=== PATIENT | female | born 1960 | race Caucasian/White ===

== ENCOUNTER 2018-09-29 15:13 | Emergency (ER) | payer OTHER ==
[2018-09-29 15:34] VITALS: BP 141/82
--- NOTE | 2018-09-29 16:10 | UC ---
Cardiac HPI - HPI Summary HPI Summary: See nurse's notes, Pt has been having symptoms over the past 2 weeks of racing heart, intermittent chest pressure, neck pain, occasional nausea. She has seen her PCP but has not had a cardiac work up. Today she has pain on deep inspiration. She is a non-smoker, no use of control. She states "I feel absolutely terrible". She has an appt with her PCP this Thursday but felt so bad today she wanted to be seen. - History of Current Complaint Chief Complaint: UCChestPain Stated Complaint: CHEST PAIN Time Seen by Provider: 09/29/18 15:46 Hx Obtained From: Patient Onset/Duration: Gradual Onset, Lasting Weeks - Past 2 weeks Timing: Intermittent Episodes Lasting: - Last minutes, pain on deep inspiration Initial Severity: Mild Current Severity: Mild Pain Intensity: 5 Chest Pain Location: Mid Sternal - Radiates through to back Character: Pounding - Occasional tachycardia, Dull/Aching, Heaviness Aggravating Factor(s): Deep Breaths - Works out twice a day Alleviating Factor(s): Nothing Associated Signs & Symptoms: Positive: Chest Pain - Ringing in ears the past few days, Headaches - Headache today, Nausea/Vomiting - Occasioanl nausea, no vomiting, Palpitations, Back Pain. Negative: Calf Pain/Swelling - Risk Factors Pulmonary Embolism Risk Factors: Negative Cardiac Risk Factors: Negative, Family History Atrial Fibrillation: Negative TAD Risk Factors: Negative AMI/ACS Risk Factors: Family History - Family history of cardiac disease - Allergy/Home Medications Allergies/Adverse Reactions: Allergies Allergy/AdvReac Type Severity Reaction Status Date / Time No Known Allergies Allergy Verified 09/29/18 16:58 Home Medications: Home Medications ALPRAZolam TAB* [Xanax TAB*] 0.25 mg PO Q6H PRN 09/29/18 [History Confirmed 01/12] Aspirin/Acetaminophen/Caffeine [Excedrin Extra Strength Caplet] 1 each PO ONCE PRN 09/29/18 [History Confirmed 09/29/18] Bupropion XL* [Wellbutrin XL *] 150 mg PO DAILY 09/29/18 [History Confirmed 01/12] Naproxen Sodium [Aleve] 220 mg PO ONCE PRN 09/29/18 [History Confirmed 09/29/18] PMH/Surg Hx/FS Hx/Imm Hx Previously Healthy: Yes - Surgical History Surgical History: Yes Surgery Procedure, Year, and Place: APPY. RHINOPLASTY. FIBROID EMBOLISM - Family History Known Family History: Positive: Cardiac Disease - Social History Occupation: Employed Full-time Alcohol Use: Rare Substance Use Type: None Smoking Status (MU): Never Smoked Tobacco Review of Systems All Other Systems Reviewed And Are Negative: Yes Constitutional: Positive: Negative, Other - Feels shaky today Skin: Positive: Negative Eyes: Positive: Negative ENT: Positive: Negative Respiratory: Positive: Other - Pain on deep inspiration Cardiovascular: Positive: Palpitations - Occasional palpitations even at rest Gastrointestinal: Positive: Nausea - Intermittent nausea Genitourinary: Positive: Negative Motor: Positive: Negative Neurovascular: Positive: Negative Musculoskeletal: Positive: Negative Neurological: Positive: Headache, Other - Feels shaky Psychological: Positive: Anxious Is Patient Immunocompromised?: No Physical Exam Triage Information Reviewed: Yes Appearance: Well-Appearing, No Pain Distress, Well-Nourished Vital Signs: Initial Vital Signs Temp 98.3 F 09/29/18 15:17 Pulse 90 09/29/18 15:17 Resp 18 09/29/18 15:17 BP 195/91 09/29/18 15:17 Pulse Ox 99 09/29/18 15:17 Vital Signs Reviewed: Yes Eye Exam: Normal ENT Exam: Normal Neck exam: Normal Respiratory Exam: Normal Respiratory: Positive: Other: - Pain on deep inspiration Cardiovascular Exam: Normal Abdominal Exam: Normal Bowel Sounds: Positive: Present Musculoskeletal Exam: Normal Musculoskeletal: Positive: Other: - Calves non-tender Neurological Exam: Normal Psychological Exam: Normal Skin Exam: Normal - Assessment/Plan Course Of Treatment: Comfortable here in No distress although she feels terrible. EKG read by Dr. Gregory as NSR, HR 88, no ST depression or elevation. Wells score is 0 and PERC is +[address] Gregory, we feel pt needs to go to the ER for further evaluation. Pt refuses to take ambulance and will sign out AMA however states she will go to the ER for further care. Dr Gregory - Spoke to pt about going to ED for further management of unknown cause intermittent palpitations and to r/o most life threatening cause would be to r/ o PE, EKG is non-ominous. Pt reluctant to go to ED via ambulance, discussed risks, signed AMA form and stated she's rather drive herself to ED NOT via ambulance. - Clinical Impression Provider Diagnosis: Chest pain - Physician Notifications Discussed Patient Care With: Tri Gregory Discharge - Sign-Out/Discharge Documenting (check all that apply): Patient Departure All imaging exams completed and their final reports reviewed: No Studies - Discharge Plan Condition: Fair Disposition: HOME-RECOMMEND TO ED Referrals: No Primary Care Phys,NOPCP [Primary Care Provider] - Additional Instructions: Go directly to the Emergency Room for further treatment. It is recommended you go by ambulance. - Billing Disposition and Condition Condition: FAIR Disposition: Home-Recommend to ED
== END 2018-09-29 16:30 | disposition home health service (06) ==
LOC: UCEAST 15:13
DX: R07.1 Chest pain on breathing (principal); R51 Headache; R11.0 Nausea; R00.2 Palpitations; M54.9 Dorsalgia, unspecified; M54.2 Cervicalgia
CPT/HCPCS: 99212; G0463

== ENCOUNTER → 2018-09-29 16:45 | Emergency (ER) | payer OTHER ==
--- NOTE | 2018-09-29 17:07 | ED ---
HPI Chest Pain - HPI Summary HPI Summary: A 57 y/o F sent [place] [facility] [place] presents to ED with c/o multiple episodes of elevated HR ongoing for the past few weeks. Associated sx: chest "tightness," dizziness when she stands, CARRILLO, R-sided neck pain, R shoulder pain, tremulous, SOB. She just feels that she has not been at her baseline recently. Aggravating factors: deep breaths. The chest tightness is a 5 out of 10 at bedside, and a 7 out of 10 at its worst. She denies recent flights and travel. Non-smoker. Rare ETOH. No drugs. - History of Current Complaint Chief Complaint: EDChestPainROMI Time Seen by Provider: 09/29/18 17:00 Hx Obtained From: Patient Onset/Duration: Started Weeks Ago, Still Present Timing: Intermittent Initial Severity: Moderate Current Severity: Moderate Pain Intensity: 5 Pain Scale Used: 0-10 Numeric Chest Pain Location: Mid Sternal Character: Tightness Aggravating Factor(s): Deep Breaths Associated Signs and Symptoms: Positive: Headaches, Dizziness, Shortness of Breath, Palpitations, Other: - pos: R shoulder pain, R neck pain, tremulous - Allergy/Home Medications Allergies/Adverse Reactions: Allergies Allergy/AdvReac Type Severity Reaction Status Date / Time No Known Allergies Allergy Verified 09/29/18 16:58 PMH/Surg Hx/FS Hx/Imm Hx Previously Healthy: Yes Endocrine/Hematology History: Denies: Hx Diabetes, Hx Thyroid Disease Cardiovascular History: Denies: Hx Hypertension Respiratory History: Denies: Hx Asthma, Hx Chronic Obstructive Pulmonary Disease (COPD) GI History: Denies: Hx Ulcer - Cancer History Hx Chemotherapy: No Hx Radiation Therapy: No - Surgical History Surgery Procedure, Year, and Place: APPY. RHINOPLASTY. FIBROID EMBOLISM Infectious Disease History: No Infectious Disease History: Reports: Hx Shingles Denies: Hx Hepatitis, Hx Human Immunodeficiency Virus (HIV), Traveled Outside the [place] in Last 30 Days - Family History Known Family History: Positive: Cardiac Disease, Diabetes - Social History Occupation: Employed Full-time Lives: With Family Alcohol Use: Rare Hx Substance Use: No Substance Use Type: Reports: None Hx Tobacco Use: No Smoking Status (MU): Never Smoked Tobacco Review of Systems Positive: Palpitations - racing, Chest Pain - "tightness" Positive: Shortness Of Breath Musculoskeletal: Other - pos: R-sided neck pain, R shoulder pain Positive: Other - pos: tremulous Neurological: Other - pos: dizziness Positive: Headache All Other Systems Reviewed And Are Negative: Yes Physical Exam - Summary Physical Exam Summary: VITAL SIGNS: Reviewed. GENERAL: Patient is a well-developed and nourished FEMALE who is lying comfortable in the stretcher. Patient is not in any acute respiratory distress. HEAD AND FACE: No signs of trauma. No ecchymosis, hematomas or skull depressions. No sinus tenderness. EYES: PERRLA, EOMI x 2, No injected conjunctiva, no nystagmus. EARS: Hearing grossly intact. Ear canals and tympanic membranes are within normal limits. MOUTH: Oropharynx within normal limits. NECK: Supple, trachea is midline, no adenopathy, no JVD, no carotid bruit, no c- spine tenderness, neck with full ROM. CHEST: Symmetric, no tenderness at palpation LUNGS: Clear to auscultation bilaterally. No wheezing or crackles. CVS: Tachy, regular rhythm, S1 and S2 present, no murmurs or gallops appreciated. ABDOMEN: Soft, non-tender. No signs of distention. No rebound, no guarding, and no masses palpated. Bowel sounds are normal. EXTREMITIES: FROM in all major joints, no edema, no cyanosis or clubbing. NEURO: Alert and oriented x 3. No acute neurological deficits. Speech is normal and follows commands. SKIN: Dry and warm Triage Information Reviewed: Yes Vital Signs On Initial Exam: Initial Vitals Temp Pulse Resp BP Pulse Ox 97.7 F 86 16 175/92 100 09/29/18 16:50 09/29/18 16:50 09/29/18 16:50 09/29/18 16:50 09/29/18 16:50 Vital Signs Reviewed: Yes Diagnostics - Vital Signs Vital Signs Temp Pulse Resp BP Pulse Ox 09/29/18 16:50 97.7 F 86 16 175/92 100 - Laboratory Result Diagrams: 09/29/18 17:21 09/29/18 17:21 Lab Statement: Any lab studies that have been ordered have been reviewed, and results considered in the medical decision making process. - Radiology CXR Radiology Interpretation Completed By: Radiologist Summary of Radiographic Findings: IMPRESSION: No active cardiopulmonary disease is noted. ED provider has reviewed this report. - EKG 1715 Cardiac Rate: NL - 79bpm EKG Rhythm: Sinus Rhythm Summary of EKG Findings: No ST elevation. Nml axis. Re-Evaluation - Re-Evaluation 1 Re-Evaluation Time: 19:08 Change: Unchanged Comment: Discussing results with pt and plans for D/C. Chest Pain Course/Dx - Course Assessment/Plan: This patient is a 57-year-old female who presents to the emergency department with a chief complaint of having chest pain. The patient also reports that shes been having palpitations. She was seen in the urgent care and she was transferred to the emergency room for further workup and management. EKG is a sinus rhythm with no ST elevations. Blood work without any significant abnormality, d-dimer is less than 200, therefore, I have no suspicion for a pulmonary embolus. Chest x-ray shows no acute cardiopulmonary disease. Heart score for this patient is equal to 1. I discussed all the findings and test results with the patient. Patient was instructed to return to the emergency room immediately if any of the symptoms return or worsens. Plan of care was discussed with the patient and she understands and agrees. All questions were answered to patient satisfaction. There were no further complaints or concerns. Lung exam before discharge: CTA B/L. Good air exchange. No wheezing or crackles heard. CVS: S1 and S2 present. No murmurs appreciated. Patient is alert and oriented x 3. Patient is hemodynamically stable. Patient will be discharged home with follow up PCP in the next 2-3 days. - Chest Pain Differential Diagnosis/HQI/PQRI: Acute NV, ACS, Angina, CHF, Chest Wall, GI Disease, Lower Respiratory Infection, Pulmonary Edema - Diagnoses Provider Diagnoses: Atypical chest pain Discharge - Sign-Out/Discharge Documenting (check all that apply): Patient Departure - D/C Patient Received Moderate/Deep Sedation with Procedure: No - Discharge Plan Condition: Stable Disposition: HOME Patient Education Materials: Chest Pain (ED) Referrals: Solis Huerta MD [Primary Care Provider] - 3 Days Additional Instructions: FOLLOW UP WITH YOUR PRIMARY CARE PROVIDER WITHIN ONE WEEK FOR HIGH BLOOD PRESSURE NOTED TODAY. RETURN TO THE ED FOR ANY WORSENING OR NEW SYMPTOMS. - Billing Disposition and Condition Condition: STABLE Disposition: Home - Attestation Statements Document Initiated by Scribe: Yes Documenting Scribe: SooYoung VanDeMark Provider For Whom Scribe is Documenting (Include Credential): Dr. Arcadio Arora MD Scribe Attestation: I, Shannan Zavaleta, scribed for Dr. Arcadio Arora MD on 09/29/18 at 2226. Scribe Documentation Reviewed: Yes Provider Attestation: The documentation as recorded by the mahendra, Shannan Zavaleta accurately reflects the service I personally performed and the decisions made by me, Dr. Arcadio Arora MD Status of Scribe Document: Viewed
[2018-09-29 17:29] LABS: ABS Basophils 0 10^3/ul (0-0.2); ABS Eosinophils 0.1 10^3/ul (0-0.6); ABS Lymphocytes 1.9 10^3/ul (1.0-4.8); ABS Monocytes 0.5 10^3/ul (0-0.8); ABS Nucleated RBC 0 10^3/ul; Eosinophil % 1.2 %; Hematocrit 42 % (35-47); Lymphocyte % 28.7 %; Mean Corpuscular HGB Conc 34 g/dl (31-36); Mean Corpuscular Hemoglobin 31 pg (27-31); Mean Corpuscular Volume 91 fL (80-97); Mean Platelet Volume 7.3 fL (7.4-10.4); Nucleated Red Blood Cells % 0.1; Platelet Count 278 10^3/ul (150-450); Red Blood Count 4.58 10^6/ul (4.00-5.40); Red Cell Distribution Width 14 % (10.5-15); White Blood Count 6.5 10^3/ul (3.5-10.8)
[2018-09-29 17:54] LABS: Albumin 4.5 g/dL (3.2-5.2); Albumin/Globulin Ratio 1.7 (1-3); BUN/Creatinine Ratio 30.8 (8-20); Calcium 9.5 mg/dL (8.6-10.3); EGFR African American 92.8 (>60); EGFR Non-African American 76.7 (>60); Globulin 2.7 g/dL (2-4); Magnesium 2.3 mg/dL (1.9-2.7); Potassium 4.4 mmol/L (3.5-5.0); Total Bilirubin 0.4 mg/dL (0.2-1.0); Total Protein 7.2 g/dL (6.4-8.9)
[2018-09-29 18:05] LABS: TSH (Thyroid Stimulating Horm) 1.29 mcIU/mL (0.34-5.60)
[2018-09-29 19:43] VITALS: BP 141/100
== END | disposition home or self-care (01) ==
LOC: ED 16:45
DX: R07.89 Other chest pain (principal); R06.02 Shortness of breath
CPT/HCPCS: 36415; 71045; 80053; 82550; 82553; 83605; 83735; 83880; 84443; 84484; 85025; 85379; 93005; 99282